=== PATIENT | male | born 1945 | race Caucasian/White ===

== ENCOUNTER 2019-10-24 08:11 | Outpatient (CLI) | payer MEDICARE ==
[2019-10-24] VITALS (26 sets, daily range): BP systolic 92–155; BP diastolic 53–84; PULSE 71–101; TEMP 97.6
[~2019-10-24] VITALS: Ht 170.3 cm; Wt 110.0 kg
[2019-10-24 08:57] LABS: BASO # 0.1 (0.0-0.2); GRAN # 4.9 (1.4-6.5); HEMOGLOBIN 12.7 g/dl (13.5-18.0); LYMPH # 1.5 (1.2-3.4); MEAN CELL VOLUME 95 fl (80.0-100.0); MEAN CORPUSCULAR HEMOGLOBIN 33 pg (27.0-31.0); MEAN CORPUSCULAR HGB CONC 34 g/dl (33.0-37.0); MONO # 0.6 (0.1-0.6); MONO % 8.7 % (1.7-9.3); PLATELET COUNT 273 K/mm3 (130-400); RED BLOOD COUNT 3.87 M/mm3 (4.20-5.60); REDCELL DISTRIBUTION WIDTH-CV 12.9 % (11.5-14.5)
[2019-10-24 08:58] LABS: INR 0.9 (0.8-3.0)
[2019-10-24 09:01] LABS: PARTIAL THROMBOPLASTIN TIME 31.3 SECONDS (26.0-37.0)
[2019-10-24 09:08] LABS: HEMATOCRIT 36.9 % (42.0-52.0)
[2019-10-24] MEDS ORDERED: ASPIRIN E.C. 8181 MG PO (09:13)
[2019-10-24] MEDS ORDERED: LIPITOR20 MG PO (09:13)
[2019-10-24] MEDS ORDERED: LASIX 20MG TABL20 MG PO (09:14)
[2019-10-24] MEDS ORDERED: ZAROXOLYN 2.52.5 MG PO (09:15)
[2019-10-24] MEDS ORDERED: NOVOLOGMIX70/30 SQ (09:16)
[2019-10-24] MEDS ORDERED: NOVOLIN 70/30 710 ML SQ ×2 (09:17)
[2019-10-24] MEDS ORDERED: PRINIVIL20 MG PO (09:18)
[2019-10-24] MEDS ORDERED: GLUCOPHAGE XR500 M1 PO (09:19)
--- NOTE | 2019-10-24 10:03 | NUR ---
PT BROUGHT INTO CT ROOM ON BED, TNASFERED SELF TO CT TABLE. MONITORING EDQUIPMENT PLACED. IMAGES DONE AND SENT
--- NOTE | 2019-10-24 10:23 | NUR ---
PROCEDURE COMPLETED. PT TAKEN BACK TO EU AND REPOR TO SARAI CATES. AND DAUGHTER IN ROOM.
--- NOTE | 2019-10-24 10:30 | NUR ---
Pt returned to EU 11 per bed s/p kidney bx. Pt resting well, family at bedside.
--- NOTE | 2019-10-24 12:05 | NUR ---
Pt voided 325 ml clear yellow urine.
--- NOTE | 2019-10-24 14:00 | NUR ---
Pt darlene PO intake s n/v. Pt voided 275 mL clear yellow urine.
--- NOTE | 2019-10-24 16:35 | NUR ---
6 hour bedrest complete. Pt ambulated with SBA. Waiting for pt to void 3rd time.
--- NOTE | 2019-10-24 16:49 | NUR ---
Report to Flaca Paul RN who assumed care at this time.
--- NOTE | 2019-10-24 16:50 | NUR ---
Sample of void 1 and 2 in room for comparison.
--- NOTE | 2019-10-24 17:05 | NUR ---
Third void observed,spoke with Dr Nuñez.Rakan to discharge pt home at this time.
--- NOTE | 2019-10-24 17:36 | NUR ---
Discharge insructions given to pt.Pt verbalizes understanding.Pt escorted out via wheelchair by this nurse.
== END 2019-10-24 17:40 | disposition home or self-care (01) ==
LOC: COL.RAD 08:11
PROVIDERS: Internal Medicine Nephrology
DX: N04.9 Nephrotic syndrome with unspecified morphologic changes (principal)

== ENCOUNTER 2021-09-26 12:10 | Inpatient (IN) | payer MEDICARE ==
[~2021-09-26] VITALS: Ht 172.7 cm; Wt 111.6 kg
[~2021-09-26 12:10] MED LIST: ASPIRIN E.C. 8181 MG PO; GLUCOPHAGE XR500 M1 PO; LASIX 20MG TABL20 MG PO; LIPITOR20 MG PO; NOVOLIN 70/30 710 ML SQ; NOVOLOGMIX70/30 SQ; PRINIVIL20 MG PO; ZAROXOLYN 2.52.5 MG PO
[2021-09-26 13:39] LABS: BASO # 0.1 K/mm3 (0.0-0.2); BASO % 0.5 % (0.0-2.0); GRAN # 8.8 K/mm3 (1.4-6.5); GRAN % 83.8 % (42.2-75.2); LYMPH # 0.9 K/mm3 (1.2-3.4); LYMPH % 8.6 % (20.0-51.0); MEAN CELL VOLUME 93 fl (80.0-100.0); MEAN CORPUSCULAR HEMOGLOBIN 32 pg (27.0-31.0); MEAN CORPUSCULAR HGB CONC 34 g/dl (33.0-37.0); MEAN PLATELET VOLUME 11.8 fl (7.4-10.4); MONO # 0.7 K/mm3 (0.1-0.6); MONO % 6.7 % (1.7-9.3); PLATELET COUNT 218 K/mm3 (130-400); RED BLOOD COUNT 3.49 M/mm3 (4.20-5.60); REDCELL DISTRIBUTION WIDTH-CV 14.5 % (11.5-14.5)
[2021-09-26 13:41] LABS: HEMATOCRIT 32.6 % (42.0-52.0)
[2021-09-26 14:31] LABS: ALBUMIN 3.2 gm/dL (3.4-4.8); BILIRUBIN,TOTAL 0.4 mg/dL (0.2-1.2); CALCIUM 9.1 mg/dL (8.4-10.2); CREATININE, serum 1.88 mg/dL (0.72-1.25); POTASSIUM 5.4 mmol/L (3.5-4.5); TOTAL PROTEIN 5.8 gm/dL (6.2-8.1)
[2021-09-26] MEDS ORDERED: MAG-OX 400400 MG/TAB PO (16:04)
[2021-09-26] MEDS ORDERED: ZYLOPRIM 300MG300 MG PO (16:04)
[2021-09-26] MEDS ORDERED: CATAPRES 0.1MG0.1 MG PO (16:05)
[2021-09-26] MEDS ORDERED: PROGRAF 1MG1 MG PO (16:05)
[2021-09-26] MEDS ORDERED: GLUCOTROL XL2.5 MG PO (16:05)
[2021-09-26 16:07] VITALS: BP 162/62; PULSE 74; TEMP 98.6
[2021-09-26 18:28] LABS: INR 1.1 (0.8-3.0); PROTHROMBIN TIME 12.5 SECONDS (9.7-12.8)
--- NOTE | 2021-09-26 19:30 | NUR ---
PT IS AWAKE, ALERT AND ORIENTED X4. SPOUSE AT BEDSIDE. HAS IVF TO LEFT AC INFUSING WITHOUT REDNESS OR SWELLING. LEFT LOWER LEG SWELLING NOTED. PLACED TEDS AND SCDS ON PT. APPLIED ICE PACK TO LEFT HIP PER DR ORDER. PT VOIDING PER URINAL.
[2021-09-26 20:24] VITALS: BP 150/84; PULSE 93; TEMP 98.4
--- NOTE | 2021-09-26 21:15 | NUR ---
PT GIVEN HS MED INCLUDING MORPHINE 2MG IV AND OXYCODONE 5MG PO FOR LEFT HIP PAIN 04/23. UA WAS SENT TO LAB. OFFERED CUEVA CATHETER AT THIS TIME, PT DOES NOT WANT AT THIS TIME. IV TO LEFT AC INFUSING WITHOUT REDNESS OR SWELLING.
[2021-09-26 21:18] LABS: PH 6 (5-8); SQUAMOUS EPITHELIAL None Seen /hpf; URINE APPEARANCE Clear; URINE BACTERIA None Seen /hpf; URINE BILIRUBIN Negative (NEGATIVE); URINE BLOOD Negative (NEGATIVE); URINE COLOR Yellow; URINE GLUCOSE Negative (NEGATIVE); URINE KETONE Negative (NEGATIVE); URINE LEUKOCYTE ESTERASE Negative (NEGATIVE); URINE NITRATE Negative (NEGATIVE); URINE PROTEIN(semi-quant) 2+ (NEGATIVE); URINE RBC 0-2 /hpf; URINE UROBILINOGEN Negative (NEGATIVE)
[2021-09-26 22:08] LABS: COLLECTION METHOD CLEAN CATCH
[2021-09-27] VITALS (12 sets, daily range): BP systolic 104–183; BP diastolic 44–104; PULSE 76–114; TEMP 97.3–99.5
--- NOTE | 2021-09-27 | NUR ---
PT NPO FOR SURGERY.
--- NOTE | 2021-09-27 01:58 | NUR ---
PT AWAKE, REPORTS PAIN TO LEFT LEG 8/10. MORPHINE 2MG IVP AND OXYCODONE 5MG PO GIVEN AT THIS TIME.
--- NOTE | 2021-09-27 05:42 | NUR ---
PLACED #16FR CUEVA, IMMEDIATE RETURN OF LIGHT YELLOW URINE. PT HAS WET AREA FROM URINE ON SHEETS, REFUSES TO HAVE BOTTOM SHEET CHANGED AT THIS TIME. PLACED CUEVA TO BSD. PT TOLERATED WITHOUT PROBLEM.
[2021-09-27 06:51] LABS: BASO % 0.5 % (0.0-2.0); EOS # 0.2 K/mm3 (0.0-0.7); EOS % 2.6 % (0-4.0); GRAN # 5.8 K/mm3 (1.4-6.5); GRAN % 67.9 % (42.2-75.2); LYMPH # 1.4 K/mm3 (1.2-3.4); LYMPH % 16.4 % (20.0-51.0); MEAN CELL VOLUME 96 fl (80.0-100.0); MEAN CORPUSCULAR HGB CONC 33 g/dl (33.0-37.0); MEAN PLATELET VOLUME 11.4 fl (7.4-10.4); MONO % 11.8 % (1.7-9.3); PLATELET COUNT 216 K/mm3 (130-400); RED BLOOD COUNT 3.04 M/mm3 (4.20-5.60); REDCELL DISTRIBUTION WIDTH-CV 14.5 % (11.5-14.5)
[2021-09-27 06:56] LABS: HEMATOCRIT 29.1 % (42.0-52.0); HEMOGLOBIN 9.7 g/dl (13.5-18.0); MEAN CORPUSCULAR HEMOGLOBIN 32 pg (27.0-31.0)
--- NOTE | 2021-09-27 07:00 | NUR ---
Report received from LAON Bai. PTin bed resting, alert and oriented, anticipating surgery today ,lesleys needs, will continue to monitor.
[2021-09-27 07:12] LABS: ALBUMIN 2.9 gm/dL (3.4-4.8); CALCIUM 8.2 mg/dL (8.4-10.2); CREATININE, serum 1.8 mg/dL (0.72-1.25); MAGNESIUM 1.7 mg/dL (1.6-2.6); PHOSPHOROUS 3.6 mg/dL (2.3-4.7); POTASSIUM 5.1 mmol/L (3.5-4.5)
--- NOTE | 2021-09-27 07:56 | NUR ---
Assessemnt charted. PT taken down via bed with OR staff for surgery, consent signed and pt anticipating surgery. No family here at this time but states they will be here today. Resting in bed with SCD and ROBERT in place, IVF to LFA.
--- NOTE | 2021-09-27 10:55 | NUR ---
Pt returned to floor via bed with OR staff. Awake and alert, no ability to move LLE yet but does feel touch and CMS intact. LLE dressing is CDI to both sites. VSs will continue to monitor.
--- NOTE | 2021-09-27 13:51 | NUR ---
Sw met with the pt ( present, Jannet [phone]) who stated preference to return home once medically stable. The pt lives at home with his . The couple have two chidlren. The pt was independent prior to admit and still drives a car. The pt PCP is Carlos Herron and gets his medications from [facility] in [place]. informed Sw that if he needs rehab they do not want to use [facility]. PT/OT referral sent. No other needs stated at this time. Sw to await further recommendations and follow as needed. D/c : rehab vs HH
--- NOTE | 2021-09-27 18:29 | NUR ---
Pt has been nauseated after surgery, vomiting often, clear emesis, PRN zofran given per orders after calling Dr. Rosenbaum. Pt not great at verbalizing pain or nausea, meds provided. Denies needs, will give report to nightshift nurse who will resume care.
--- NOTE | 2021-09-27 20:29 | NUR ---
PT IN BED WATCHING FOOTBALL. IS ORIENTED X4, AT TIMES HAS INAPPROPRIATE COMMENTS LIKE "I DIDN'T KNOW YOU WORKED ALL NIGHT" AND "JUST LOOKING TO GET OUT OF HERE". PT REPORTS PAIN TO LEFT HIP AND MOVES MINIMALLY WITH HELP. NEW ICE PACK PROVIDED, INCISIONS X2 WITH DRY DRSG'S NOTED. CUEVA TO BSD WITH YELLOW URINE. SL TO LEFT AC, FLUSHES WELL. MEDICATED WITH ZOFRAN 4MG IVP AN MORPHINE 2MG IVP AT THIS TIME. BED ALARM SET.
--- NOTE | 2021-09-27 22:06 | NUR ---
REPORTED PT'S B/P TO TRESSA JIMENEZ INCLUDING HS BLOOD SUGAR OF 406. NEW ORDER FOR IV HYDRALAZINE GIVEN. MEDICATED AT THIS TIME WITH 10MG IVP FOR SBP 180.
[2021-09-28] VITALS (7 sets, daily range): BP systolic 79–150; BP diastolic 42–84; PULSE 100–117; TEMP 97.6–98.5
--- NOTE | 2021-09-28 00:26 | NUR ---
PT REPORTS PAIN WHEN MOVING HIS LEFT FOOT, MEDICATED WITH OXYCODONE 5MG PO AND MORPHINE 2MG IVP AT THIS TIME.
--- NOTE | 2021-09-28 04:24 | NUR ---
GIVEN SCHEDULED ES TYLENOL WITH OXYCODONE 5MG PO AT THIS TIME.
[2021-09-28 06:32] LABS: BASO % 0.4 % (0.0-2.0); GRAN # 8.4 K/mm3 (1.4-6.5); GRAN % 75.4 % (42.2-75.2); LYMPH # 1.2 K/mm3 (1.2-3.4); LYMPH % 10.3 % (20.0-51.0); MEAN CELL VOLUME 95 fl (80.0-100.0); MEAN CORPUSCULAR HGB CONC 33 g/dl (33.0-37.0); MEAN PLATELET VOLUME 11.6 fl (7.4-10.4); MONO # 1.5 K/mm3 (0.1-0.6); PLATELET COUNT 207 K/mm3 (130-400); RED BLOOD COUNT 2.81 M/mm3 (4.20-5.60); REDCELL DISTRIBUTION WIDTH-CV 14.6 % (11.5-14.5)
[2021-09-28 06:33] LABS: HEMATOCRIT 26.7 % (42.0-52.0); HEMOGLOBIN 8.8 g/dl (13.5-18.0); MEAN CORPUSCULAR HEMOGLOBIN 31 pg (27.0-31.0)
[2021-09-28 06:47] LABS: ALBUMIN 2.8 gm/dL (3.4-4.8); CALCIUM 8.3 mg/dL (8.4-10.2); CREATININE, serum 2.53 mg/dL (0.72-1.25); MAGNESIUM 1.7 mg/dL (1.6-2.6); POTASSIUM 5.4 mmol/L (3.5-4.5)
--- NOTE | 2021-09-28 07:56 | NUR ---
BP low during morning vital signs. Pt is very drowsy, wakes easily when spoken to, but then quickly falls back to sleep. Recheck BP at this time 101/81, Yvrose JIMENEZ notified. Pt reports not having any pain at this time. Breakfast has arrived, sat pt up and encouraged him to eat.
--- NOTE | 2021-09-28 09:23 | NUR ---
Pt up in the chair. He was very resistent in getting up and it took multiple attempts.
--- NOTE | 2021-09-28 10:19 | NUR ---
Pt sitting up in the chair. He did ask what he is supposed to do if he needs to have a bowel movement. Informed him that we would help him get up to a commode. He said that that will not happen and that we will just have to clean up a mess. He said that his leg hurts too bad to move. Asked him to rate his pain right now as he quickly falling asleep between conversation. He stated it isn't too bad right now. Informed him that him pooping in the chair would be way more work for him and that he would still be required to get up and move. He was not happy with this. Chair alarm on
--- NOTE | 2021-09-28 10:40 | NUR ---
Initial visit; Patient thanked Pattern Lease Inspector for looking in on him and offering God's blessings and to keep him in her prayers.
--- NOTE | 2021-09-28 11:27 | NUR ---
PT is recommending IPR. OT recommends post-acute rehab. HARSHAD met with the patient and his daughter to inform and discuss options. HARSHAD provided his daughter with Medicare.gov's list of SNFs in the [place] area. His daughter reports that they do not want the patient to go to [place]. The patient's daughter would like for SW to go ahead and give a referral to our IPR, but they are unsure if they want to pursue with IPR yet. She reports that her mother will be arriving to the hospital soon and they will discuss the options. HARSHAD informed his daughter how the patient has a Medicare advantage plan and that we will need to submit for auth, for IPR or SNF. His daughter verbalized understanding. HARSHAD provided the daughter with HARSHAD's phone number. *Discharge plan: post-acute rehab*
--- NOTE | 2021-09-28 12:32 | NUR ---
Pt not happy at all about having to get up in the chair. He has told everyone that has gone in to his room and is refusing to work with therapy again. Informed him that they are here to help and to make sure he is safe. Daughter and in room and are discussing places to go for therapy. Call light within reach
--- NOTE | 2021-09-28 16:09 | NUR ---
The patient's arrived to the hospital. HARSHAD met with the patient and his , Jannet, to follow up on preference for rehab. Jannet reports that their daughter, Martha, went and visited [facility] today. She reports that they are their first preference. Jannet then contacted Martha (ph#[phone]), and placed her on speaker phone. Martha reports that they have rooms available and informed her that they should have no issue accepting the patient. HARSHAD informed the patient and his family how HARSHAD will need to send Meza a referral and also submit auth to insurance. The patient and his family verbalized understanding. HARSHAD contacted and faxed a referral to Ale at [facility]. Ale reports that they are able to provide transport. They require a COVID test 24 hours prior to discharge. HARSHAD staffed with the PA. Nephrology has been consulted. The patient may be able to discharge in two days. Awaiting screen. *Discharge plan: SNF*
--- NOTE | 2021-09-28 16:47 | NUR ---
Pt reports feeling good when resting in bed. Pt reports that nothing he has eaten here has tasted any good and is refusing to eat dinner. just recently left. No other needs, call light within reach
--- NOTE | 2021-09-29 00:21 | NUR ---
PT PULLS OUT IV BAG OF FLUIDS ORDERED NEARLY INFUSED. REFUSED TO EAT DINNER TONIGHT DAUGHTER UPDATED AND NOT HAPPY. INFORMED WE WERE MONITORING BLOOD SUGARS. PT IS VERY GRUMPY AND TIRED TONIGHT. OKAY TO LEAVE IV OUT AT THIS TIME PER RAHEL JIMENEZ. REPORTS NO PAIN. ICE TO LT HIP.
[2021-09-29 00:35] VITALS: BP 139/79; PULSE 98; TEMP 98.2
[2021-09-29 04:56] VITALS: BP 148/63; PULSE 109; TEMP 98.5
--- NOTE | 2021-09-29 06:04 | NUR ---
RESTED THROUGH THE NIGHT WITHOUT INCIDENT. TRYED TO MEDICATE FOR PT THIS AM. REFUSED. CALL LIGHT WI REACH.
--- NOTE | 2021-09-29 06:50 | NUR ---
appears to be sleeping, bedside shift report received from LOAN Bowling
[2021-09-29 07:06] LABS: BASO % 0.3 % (0.0-2.0); GRAN # 7.8 K/mm3 (1.4-6.5); GRAN % 77.5 % (42.2-75.2); LYMPH % 10.1 % (20.0-51.0); MEAN CELL VOLUME 98 fl (80.0-100.0); MEAN CORPUSCULAR HGB CONC 33 g/dl (33.0-37.0); MEAN PLATELET VOLUME 11.5 fl (7.4-10.4); MONO # 1.1 K/mm3 (0.1-0.6); MONO % 11.3 % (1.7-9.3); PLATELET COUNT 184 K/mm3 (130-400); RED BLOOD COUNT 2.61 M/mm3 (4.20-5.60); REDCELL DISTRIBUTION WIDTH-CV 14.7 % (11.5-14.5)
[2021-09-29 07:07] VITALS: BP 149/73; PULSE 111; TEMP 98.5
[2021-09-29 07:10] LABS: HEMATOCRIT 25.5 % (42.0-52.0); HEMOGLOBIN 8.4 g/dl (13.5-18.0); MEAN CORPUSCULAR HEMOGLOBIN 32 pg (27.0-31.0)
[2021-09-29 07:24] LABS: CALCIUM 8.9 mg/dL (8.4-10.2); CREATININE, serum 2.46 mg/dL (0.72-1.25)
--- NOTE | 2021-09-29 07:30 | NUR ---
Shift assessment done. C/O sharp pain in left hip when ambulating, rating a 9/10. No pain when sitting or laying, ice applied to left hip after ambulation to relieve pain. Primary nurse notified. Both Gauze and Tegaderm dressings on lateral left hip are CDI. Chris hose on. IS encouraged (2000 tidal) every hour as well as ankle pumps.
--- NOTE | 2021-09-29 08:00 | NUR ---
resting in bed awaiting breakfast, medicated with roxicodone 5mg in anticipation of working with therapy and getting out of bed and into recliner, full assessment completed, see interventions for further info
--- NOTE | 2021-09-29 08:31 | NUR ---
HARSHAD faxed the patient's records to [facility] for auth at SNF.
--- NOTE | 2021-09-29 10:04 | NUR ---
physical therapy was in and worked with patient and is up sitting in chair at this time
--- NOTE | 2021-09-29 10:06 | NUR ---
reviewed assessment completed by student and in agreement with this assessment
[2021-09-29 10:47] VITALS: BP 110/57; PULSE 90; TEMP 98.5
--- NOTE | 2021-09-29 12:00 | NUR ---
feels need to have bowel movement, assisted up to bedside commode with use of sit to stand and placed on commode
--- NOTE | 2021-09-29 12:30 | NUR ---
unable to have bowel movement but passing flatus, back to chair with use of sit to stand
--- NOTE | 2021-09-29 13:36 | NUR ---
HARSHAD contacted Ale at [facility] to follow up on referral. Ale reports that they typically do not take Medicare [employer], but that she talked to the patient's daughter about switching his plan to regular Medicare. She reports that they would be able to take the patient, if the patient is willing to change his advantage plan over to regular Medicare. HARSHAD received a voicemail from the patient's daughter, Martha. She stated that they have changed preferences for rehab. HARSHAD contacted Martha. Martha reports that she has been in contact with [facility] and the patient's insurance is out of network work with them. She reports that they do not plan on changing the patient's insurance. Martha reports that they now prefer 1) IPR 2) [facility]. HARSHAD notified [place] with IPR. HARSHAD contacted and faxed a referral to Soo at [facility]. Awaiting screens.
--- NOTE | 2021-09-29 14:15 | NUR ---
resting in bed, given kayexelate per order, instructed to notify staff if he has urge to have bowel movement
--- NOTE | 2021-09-29 14:53 | NUR ---
appears to be sleeping, in bed with eyes closed, resp quiet and easy
[2021-09-29 15:36] VITALS: BP 153/78; PULSE 111; TEMP 98.7
--- NOTE | 2021-09-29 16:10 | NUR ---
Soo, at [facility], reports that they would be able to accept the patient, pending insurance auth.
--- NOTE | 2021-09-29 17:11 | NUR ---
resting in bed looking at TV waiting on supper
--- NOTE | 2021-09-29 18:13 | NUR ---
sitting up in bed with supper but states it doesn't taste good, encouraged him to try and eat something
--- NOTE | 2021-09-29 18:57 | NUR ---
bedside shift report given to LOAN Bang
[2021-09-29 20:27] VITALS: BP 147/63; PULSE 114; TEMP 99.8
[2021-09-30] VITALS (7 sets, daily range): BP systolic 112–160; BP diastolic 68–83; PULSE 106–112; TEMP 98.4–98.9
--- NOTE | 2021-09-30 02:44 | NUR ---
PT IS REPOSITIONED IN BED WITH 2 ASSIST. PT AWAKENS EASILY TO SPEECH, DENIES PAIN, ORIENTED TO PERSON ET PLACE. PT HAS BEEN USING URINAL TO VOID IN BED, 300 ML DARK YELLOW URINE IS EMPTIED. PT WAS ASSISTED TO BSC LAST NIGHT, 2 ASSIST USED WITH GAIT BELT. PT WAS PIVOT TRANSFERRED FROM BED. CHARLOTTE HOANG REPORTED THAT PT DID NOT TOLERATE TRANSFER BACK TO BED WELL, HAD BM ET PASSED GAS. PT DENIES NEEDS @ THIS TIME. RESPIRATIONS UNLABORED, CALL LIGHT WITHIN REACH.
--- NOTE | 2021-09-30 05:25 | NUR ---
PT RESTS QUIETLY IN BED, IS EASILY AWAKENED. PT DENIES PAIN. FRESH ICE WATER GIVEN TO DRINK ET ICE PACK APPLIED TO LEFT HIP. DARK YELLOW URINE EMPTIED FROM URINAL. PT IS PLEASANT, ORIENTED X3, DENIES OTHER NEEDS. RESPIRATIONS UNLABORED. BED ALARM ON, CALL LIGHT WITHIN REACH.
[2021-09-30 07:11] LABS: BASO % 0.3 % (0.0-2.0); EOS % 0.1 % (0-4.0); GRAN % 77.1 % (42.2-75.2); LYMPH % 11.1 % (20.0-51.0); MEAN CELL VOLUME 97 fl (80.0-100.0); MEAN CORPUSCULAR HGB CONC 33 g/dl (33.0-37.0); MEAN PLATELET VOLUME 11.7 fl (7.4-10.4); MONO % 10.5 % (1.7-9.3); PLATELET COUNT 204 K/mm3 (130-400); RED BLOOD COUNT 2.61 M/mm3 (4.20-5.60); REDCELL DISTRIBUTION WIDTH-CV 14.8 % (11.5-14.5)
[2021-09-30 07:15] LABS: HEMATOCRIT 25.2 % (42.0-52.0); HEMOGLOBIN 8.3 g/dl (13.5-18.0); MEAN CORPUSCULAR HEMOGLOBIN 32 pg (27.0-31.0)
--- NOTE | 2021-09-30 07:17 | NUR ---
Shift assessment done. No c/o pain, left hip dressing CDI. ROBERT hose on right leg only. Ankle pump & IS encouraged 2000mL tidal every hour. [facility] checks WNL BLE.
[2021-09-30 07:26] LABS: CALCIUM 8.8 mg/dL (8.4-10.2); CREATININE, serum 1.95 mg/dL (0.72-1.25); POTASSIUM 4.8 mmol/L (3.5-4.5)
--- NOTE | 2021-09-30 07:33 | NUR ---
Report received from LOAN Motta. Patient is resting in bed. Call light and bedside table are within reach. Will continue to monitor patient throughout shift.
--- NOTE | 2021-09-30 08:45 | NUR ---
Physical therapy came and transferred slowly from bed to chair w/ walker as well as x2 stand by assist. Pt tolerated transfer well stating a pain rating of 7/10 when standing. Ice pack applied once pt sat down in chair to help reduce pain to a 1/10.
--- NOTE | 2021-09-30 09:22 | NUR ---
Shift assessment completed. No c/o pain, left hip dressing CDI. Chris hose on right leg only. Ankle pump & IS encouraged 2000mL tidal every hour. [facility] checks WNL BLE.
--- NOTE | 2021-09-30 13:47 | NUR ---
Halle, with IPR, reports that she talked to the patient's family and they would prefer IPR. She reports that the patient qualifies and that she will be submitting for auth today.
--- NOTE | 2021-09-30 14:45 | NUR ---
This nurse spoke with Yvrose, hospitalist in reference to patient completing nuc med study. She stated she would rather him finish the study tonight in case he needs to start on a heparin drip d/t D-dimer being 918. This nurse tried to contact nuc med several times unsucessfully. Will let maintenance supervisor 2nd shift know.
--- NOTE | 2021-09-30 23:37 | NUR ---
PT'S BED ALARM GOES OFF, PT IS SITTING ON EDGE OF BED. PT STATES THAT HE WAS DREAMING ET WOKE UP TO THE BED BEING SOAKED. PT IS INCONTINENT OF A LARGE AMOUNT OF URINE. LINENS ARE CHANGED ET PT IS ASSISTED TO LAY BACK IN BED WITH 2 ASSIST. DENIES PAIN @ REST ET OTHER NEEDS. RESPIRATIONS UNLABORED. BED ALARM ON ET CALL LIGHT WITHIN REACH.
[2021-10-01 00:32] VITALS: BP 145/69; PULSE 104; TEMP 97.6
--- NOTE | 2021-10-01 02:11 | NUR ---
PT IS AWAKE ET HEARD CURSING. PT STATES THAT HE IS HAVING LEFT HIP PAIN WHEN ASKED, RATES 4/10. PT STATES THAT HE IS JUST NOT ABLE TO GET TO SLEEP ET USUALLY HAS NO TROUBLE. PAIN PILL ADMINISTERED ET FRESH ICE PACK PLACED TO LEFT HIP. PT DENIES OTHER NEEDS. BED ALARM, CALL LIGHT WITHIN REACH.
--- NOTE | 2021-10-01 03:13 | NUR ---
PT RESTING QUIETLY IN BED, OCCASIONALLY HEARD LIGHTLY SNORING WHILE SLEEPING. RESPIRATIONS UNLABORED.
[2021-10-01 03:32] VITALS: BP 148/72; PULSE 102; TEMP 97.6
--- NOTE | 2021-10-01 06:50 | NUR ---
Report received from LOAN Motta. Patient is sleeping in bed. Call light and bedside table are within reach. Will continue to monitor patient throughout shift.
[2021-10-01 07:01] LABS: BASO % 0.5 % (0.0-2.0); EOS # 0.1 K/mm3 (0.0-0.7); EOS % 1.5 % (0-4.0); GRAN # 5.5 K/mm3 (1.4-6.5); GRAN % 69.6 % (42.2-75.2); HEMATOCRIT 24.1 % (42.0-52.0); LYMPH # 1.3 K/mm3 (1.2-3.4); LYMPH % 16.6 % (20.0-51.0); MEAN CELL VOLUME 96 fl (80.0-100.0); MEAN CORPUSCULAR HEMOGLOBIN 32 pg (27.0-31.0); MEAN CORPUSCULAR HGB CONC 33 g/dl (33.0-37.0); MEAN PLATELET VOLUME 11.4 fl (7.4-10.4); MONO # 0.9 K/mm3 (0.1-0.6); MONO % 10.8 % (1.7-9.3); PLATELET COUNT 230 K/mm3 (130-400); REDCELL DISTRIBUTION WIDTH-CV 14.8 % (11.5-14.5)
[2021-10-01 07:06] LABS: CALCIUM 8.8 mg/dL (8.4-10.2); CREATININE, serum 1.7 mg/dL (0.72-1.25); POTASSIUM 4.4 mmol/L (3.5-4.5)
[2021-10-01 08:59] VITALS: BP 163/70; PULSE 108; TEMP 98.3
[2021-10-01] MEDS ORDERED: PRINIVIL5 MG PO (09:17)
[2021-10-01] MEDS ORDERED: ASPI325T6 PO (09:17)
[2021-10-01] MEDS ORDERED: PERCOCET 325 MG1 TA2 PO (09:18)
[2021-10-01] MEDS ORDERED: OSCAL 500 TAB500 MG PO (09:18)
[2021-10-01] MEDS ORDERED: VITAMIN C500 MG PO (09:19)
[2021-10-01] MEDS ORDERED: DUO-KAPS1 CAP PO (09:19)
[2021-10-01 12:42] VITALS: BP 152/76; PULSE 113; TEMP 98
--- NOTE | 2021-10-01 13:37 | NUR ---
Emperatriz, with IPR, reports that the patient's insurance denied IPR. HARSHAD notified and faxed updates to Soo at [facility]. HARSHAD contacted Catrachita, case finisher with [facility], to follow up on request for SNF. Catrachita reports that they have approved SNF at [facility]. She reports that she will get in contact with [facility] to provide them with all the info. HARSHAD updated Soo. Soo reports that they are all good to take the patient today. HARSHAD met with the patient, his , and daughter to update. The patient and his family are in ageement to the plan. The patient is to discharge today, 10/01, to [facility] for a skilled stay. Transportation was scheduled at 1500, via [facility]. HARSHAD informed the patient, his family, and RN of the time. They were all agreeable to the time. HARSHAD also presented and read the IM form outloud to the patient's , Jannet. Jannet verbalized understanding and signed the form. HARSHAD provided her with a copy. No additional needs at this time.
[2021-10-01] MEDS ORDERED: SENEXON-S 50-81 EACH PO (14:15)
--- NOTE | 2021-10-01 15:13 | NUR ---
Patient is transferring to [facility]. Belongings gathered by LOAN Mak, and daughter. All personal belongings have been cleared from the room including cell phone and monument letterer. Patient transported via by [facility] transportaton. Paper work also given to [facility]
== END 2021-10-01 15:11 | DRG 481 ==
LOC: COL.ER 12:10 → SURG 14:29
PROVIDERS: Nurse Practitioner; Orthopaedic Surgery; Physician Assistant; ADMIT Internal Medicine
PROC: 0QS706Z Reposition Left Upper Femur with Intramedullary Internal Fixation Device, Open Approach (ICD-10-PCS; principal; 2021-09-27 08:00)
DX: S72.142A Displaced intertrochanteric fracture of left femur, initial encounter for closed fracture (principal); N17.9 Acute kidney failure, unspecified; M10.9 Gout, unspecified; Z79.82 Long term (current) use of aspirin; Z79.4 Long term (current) use of insulin; I12.9 Hypertensive chronic kidney disease with stage 1 through stage 4 chronic kidney disease, or unspecified chronic kidney disease; E87.5 Hyperkalemia; D64.9 Anemia, unspecified; E11.22 Type 2 diabetes mellitus with diabetic chronic kidney disease; E78.5 Hyperlipidemia, unspecified; M19.072 Primary osteoarthritis, left ankle and foot; M19.071 Primary osteoarthritis, right ankle and foot; N18.30 Chronic kidney disease, stage 3 unspecified; R00.0 Tachycardia, unspecified; I95.9 Hypotension, unspecified
CPT/HCPCS: 99223-AI; 99232-AI; 99239; A4314; A9284; A9540; A9567; C1713; J0360; J0690; J1815; J2175; J2250; J2270; J2405; J2704; J3010; J7030; J7507

== ENCOUNTER → 2021-10-16 | Outpatient (CLI) | payer MEDICARE ==
[~2021-10-16] MED LIST changes: +ASPI325T6 PO; +CATAPRES 0.1MG0.1 MG PO; +DUO-KAPS1 CAP PO; +GLUCOTROL XL2.5 MG PO; +MAG-OX 400400 MG/TAB PO; +OSCAL 500 TAB500 MG PO; +PERCOCET 325 MG1 TA2 PO; +PRINIVIL5 MG PO; +PROGRAF 1MG1 MG PO; +SENEXON-S 50-81 EACH PO; +VITAMIN C500 MG PO; +ZYLOPRIM 300MG300 MG PO
[2021-10-16 09:21] LABS: CALCIUM 8.4 mg/dL (8.4-10.2); CREATININE, serum 1.34 mg/dL (0.72-1.25); POTASSIUM 5.3 mmol/L (3.5-4.5)
== END ==
LOC: ZCOL.LAB 09:03
PROVIDERS: Internal Medicine
DX: E87.5 Hyperkalemia (principal)